=== PATIENT | female | born 1980 | race African-American/Black ===

== ENCOUNTER 2017-05-18 17:52 | Emergency (ER) | payer OTHER ==
[~2017-05-18] VITALS: Ht 167.6 cm; Wt 72.6 kg
[2017-05-18 18:16] VITALS: Ht 167.6 cm; Wt 72.6 kg
[2017-05-18 21:31] VITALS: BP 138/88
== END 2017-05-18 21:31 | disposition home or self-care (01) ==
LOC: ED 17:52
DX: R07.89 Other chest pain (principal); R51 Headache
CPT/HCPCS: J1885